=== PATIENT | female | born 1970 | race Caucasian/White ===

== ENCOUNTER 2021-02-08 09:15 | Outpatient (RCR) | payer OTHER | END 2021-02-13 | disposition home or self-care (01) | PROVIDERS: ATTEND Physical Therapist | DX: M25.511 Pain in right shoulder (principal) ==

== ENCOUNTER 2021-04-04 08:44 | Outpatient (RCR) | payer OTHER | END 2021-05-17 14:57 | disposition home or self-care (01) | PROVIDERS: ATTEND Physical Therapist | DX: M25.511 Pain in right shoulder (principal) ==

== ENCOUNTER 2022-03-28 12:47 | Day surgery (SDC) | payer OTHER ==
[~2022-03-28] VITALS: Ht 165 cm; Wt 86.0 kg
--- NOTE | 2022-03-28 13:05 | ED Abdominal Pain ---
General Chief Complaint: Abdominal/GI Problems Stated Complaint: ABD PAIN Source of Information: Patient History of Present Illness Date Seen by Provider: March 28, 2022 Time Seen by Provider: 12:57 Initial Comments PT ARRIVES VIA POV FROM HOME C/O RLQ PAIN BEGAN HAVING RIGHT SIDED ABDOMINAL PAIN LAST NIGHT AROUND 1900--MORE IN RIGHT UPPER QUADRANT INITIALLY, NOW HAS MOVED TO RLQ AND HAS PERSISTED AND GOTTEN WORSE THROUGHOUT THE DAY. PAIN IS WORSE WITH WALKING AND BUMPS ON CAR RIDE HERE NO NAUSEA/VOMITING BUT HAS NOT HAD AN APPETITE. ONLY INTAKE IN LAST 36 HOURS WAS A [place] BAR AROUND 0400 ( PT WORKED ALL NIGHT LAST NIGHT) NO FEVER NO URINARY SYMPTOMS PT HAS HAD CHOLECYSTECTOMY AND HYSTERECTOMY/BILATERAL SALPINGO-OOPHORECTOMY PCP: DR. JOSELYN GOLDMAN WITH [facility] Allergies and Home Medications Allergies Coded Allergies: No Known Drug Allergies (Unverified , 03/28/22) Patient Home Medication List Home Medication List Reviewed: Yes Hydrocodone/Acetaminophen (Hydrocodone-Acetamin 7.5-325) 7.5 Mg-325 Mg Tablet, 1 EACH PO Q4H Prescribed by: CLAUDETTE KHAN on 03/28/22 1422 Review of Systems Review of Systems Constitutional: no symptoms reported Respiratory: No Symptoms Reported Cardiovascular: No Symptoms Reported Gastrointestinal: See HPI, Abdominal Pain; Denies Constipated, Denies Diarrhea, Denies Nausea; Poor Appetite; Denies Vomiting Genitourinary: No Symptoms Reported Musculoskeletal: no symptoms reported Skin: no symptoms reported Psychiatric/Neurological: No Symptoms Reported Endocrine: No Symptoms Reported Past Dzammjk-Niobme-Guqlix Hx Patient Social History Tobacco Use?: No Substance use?: No Alcohol Use?: No Past Medical History Surgeries: Yes Gallbladder, Hysterectomy, Oophorectomy Respiratory: No Cardiac: Yes (PFO) Neurological: Yes Headaches /Migraines : 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 oz. 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, no motor/sensory deficits, alert, normal mood/affect, oriented x 3 Skin: normal color, warm/dry; No rash Progress/Results/Core Measures Results/Orders Lab Results Laboratory Tests Test 03/28/22 13:03 Range/Units White Blood Count 12.5 H 4.3-11.0 10^3/uL Red Blood Count 4.54 3.80-5.11 10^6/uL Hemoglobin 14.2 11.5-16.0 g/dL Hematocrit 42 35-52 % Mean Corpuscular Volume 91 80-99 fL Mean Corpuscular Hemoglobin 31 25-34 pg Mean Corpuscular Hemoglobin Concent 34 32-36 g/dL Red Cell Distribution Width 12.6 10.0-14.5 % Platelet Count 243 130-400 10^3/uL Mean Platelet Volume 9.2 9.0-12.2 fL Immature Granulocyte % (Auto) 0 % Neutrophils (%) (Auto) 59 42-75 % Lymphocytes (%) (Auto) 30 12-44 % Monocytes (%) (Auto) 9 0-12 % Eosinophils (%) (Auto) 1 0-10 % Basophils (%) (Auto) 0 0-10 % Neutrophils # (Auto) 7.4 1.8-7.8 10^3/uL Lymphocytes # (Auto) 3.8 1.0-4.0 10^3/uL Monocytes # (Auto) 1.1 H 0.0-1.0 10^3/uL Eosinophils # (Auto) 0.2 0.0-0.3 10^3/uL Basophils # (Auto) 0.0 0.0-0.1 10^3/uL Immature Granulocyte # (Auto) 0.1 0.0-0.1 10^3/uL Urine Color YELLOW Urine Clarity CLEAR Urine pH 7.0 5-9 Urine Specific [place] 1.015 L 1.016-1.022 Urine Protein NEGATIVE NEGATIVE Urine Glucose (UA) NEGATIVE NEGATIVE Urine Ketones NEGATIVE NEGATIVE Urine Nitrite NEGATIVE NEGATIVE Urine Bilirubin NEGATIVE NEGATIVE Urine Urobilinogen 0.2 < = 1.0 MG/DL Urine Leukocyte Esterase NEGATIVE NEGATIVE Urine RBC (Auto) 1+ H NEGATIVE Urine RBC 5-10 H /HPF Urine WBC 0-2 /HPF Urine Squamous Epithelial Cells 2-5 /HPF Urine Crystals NONE /LPF Urine Bacteria TRACE /HPF Urine Casts NONE /LPF Urine Mucus NEGATIVE /LPF Urine Culture Indicated NO Sodium Level 143 135-145 MMOL/L Potassium Level 3.7 3.6-5.0 MMOL/L Chloride Level 109 H 98-107 MMOL/L Carbon Dioxide Level 25 21-32 MMOL/L Anion Gap 9 5-14 MMOL/L Blood Urea Nitrogen 15 7-18 MG/DL Creatinine 0.96 0.60-1.30 MG/DL Estimat Glomerular Filtration Rate 72 BUN/Creatinine Ratio 16 Glucose Level 102 70-105 MG/DL Calcium Level 9.3 8.5-10.1 MG/DL Corrected Calcium 9.0 8.5-10.1 MG/DL Total Bilirubin 1.4 H 0.1-1.0 MG/DL Aspartate Amino Transf (AST/SGOT) 20 5-34 U/L Alanine Aminotransferase (ALT/SGPT) 30 0-55 U/L Alkaline Phosphatase 99 40-136 U/L Total Protein 7.3 6.4-8.2 GM/DL Albumin 4.4 3.2-4.5 GM/DL Amylase Level 52 25-125 U/L Lipase 14 8-78 U/L My Orders Orders - TUYET SUBRAMANIAN DO Ed Iv/Invasive Line Start (03/28/22 12:51) Amylase (03/28/22 12:51) Cbc With Automated Diff (03/28/22 12:51) Comprehensive Metabolic Panel (03/28/22 12:51) Lipase (03/28/22 12:51) Ua Culture If Indicated (03/28/22 12:51) Ketorolac Injection (Toradol Injection) (03/28/22 13:30) Ct Abd/Pelv W (Appendicitis) (03/28/22 13:21) Iohexol Injection (Omnipaque 350 Mg/Ml 1 (03/28/22 13:45) Received Contrast (Hold Metformin- Contr (03/28/22 13:45) Ns (Ivpb) (Sodium Chloride 0.9% Ivpb Bag (03/28/22 13:45) Lidocaine/Epi 1% 1:200,00 (Xylocaine/Epi (03/28/22 14:12) Medications Given in ED Vital Signs/I&O 03/28/22 12:50 Temp 36.7 Pulse 122 Resp 18 B/P (MAP) 148/95 (112) Pulse Ox 97 Progress Progress Note : Progress Note GIVEN TORADOL AND IV FLUIDS WITH RELIEF OF PAIN NO DETERIORATION IN PT'S CONDITION DURING ER STAY Diagnostic Imaging Comments CT ABDOMEN/PELVIS--PER DR. GARCIA VIA PHONE AT 1350 FINDINGS: Lower chest: The lung bases are clear. No pericardial or pleural effusion. Peritoneum: No free intraperitoneal air. No loculated fluid collection would indicate abscess. Liver and biliary system: The liver is normal. Cul-de-sac knee. No biliary duct dilatation. Spleen and Pancreas: Spleen is normal. The pancreas enhances normally without mass lesion or peripancreatic inflammatory changes. Adrenals: Normal. tract: The kidneys enhance normally without suspicious mass or obstruction. Urinary bladder is distended without wall thickening. Hysterectomy. No adnexal mass. GI tract: Stomach is decompressed. No bowel obstruction. No pericolonic inflammatory changes. The appendix is enlarged measuring up to 1.1 cm and has surrounding inflammation indicative of acute appendicitis. An obstructing appendicolith is present at the appendiceal orifice. Vasculature and Lymph nodes: Normal caliber aorta. No abdominal or pelvic lymphadenopathy. Musculoskeletal: No concerning osseous lesion. IMPRESSION: 1. Acute appendicitis due to obstructing appendicolith. No abscess formation or roverto perforation. 2. No bowel obstruction. Departure Communication (Admissions) 1355--SPOKE WITH DR. KHAN, WILL BE TAKING PT DIRECTLY TO SURGERY Impression Primary Impression: Appendicitis Disposition: ADMITTED INPATIENT (TO SURGERY) Condition: Improved Admissions Decision to Admit Reason: Admit from ER (General) (TO SURGERY) Decision to Admit/Date: March 28, 2022 Time/Decision to Admit Time: 13:55 Departure-Patient Inst. Referrals: JOSELYN GOLDMAN MD (PCP/Family) Primary Care Physician Scripts Hydrocodone/Acetaminophen (Hydrocodone-Acetamin 7.5-325) 7.5 Mg-325 Mg Tablet 1 EACH PO Q4H, #35 TAB Prov: CLAUDETTE KHAN MD 03/28/22 TUYET SUBRAMANIAN DO March 28, 2022 13:05
[2022-03-28 13:17] LABS: BASOPHILS % (AUTO) 0 % (0-10); EOSINOPHILS # (AUTO) 0.2 10^3/uL (0.0-0.3); EOSINOPHILS % (AUTO) 1 % (0-10); HEMATOCRIT 42 % (35-52); HEMOGLOBIN 14.2 g/dL (11.5-16.0); LYMPHOCYTES # (AUTO) 3.8 10^3/uL (1.0-4.0); LYMPHOCYTES % (AUTO) 30 % (12-44); MEAN CORPUSCULAR HEMOGLOBIN 31 pg (25-34); MEAN CORPUSCULAR HGB CONC 34 g/dL (32-36); MEAN CORPUSCULAR VOLUME 91 fL (80-99); MEAN PLATELET VOLUME 9.2 fL (9.0-12.2); MONOCYTES # (AUTO) 1.1 10^3/uL (0.0-1.0); MONOCYTES % (AUTO) 9 % (0-12); NEUTROPHILS # (AUTO) 7.4 10^3/uL (1.8-7.8); NEUTROPHILS % (AUTO) 59 % (42-75); PLATELET COUNT 243 10^3/uL (130-400); WHITE BLOOD COUNT 12.5 10^3/uL (4.3-11.0)
[2022-03-28 13:19] LABS: BILIRUBIN,URINE NEGATIVE (NEGATIVE); CLARITY,URINE CLEAR; COLOR,URINE YELLOW; GLUCOSE, URINE (UA) NEGATIVE (NEGATIVE); KETONES,URINE NEGATIVE (NEGATIVE); LEUKOCYTE ESTERASE ,URINE NEGATIVE (NEGATIVE); NITRITE,URINE NEGATIVE (NEGATIVE); PROTEIN,URINE NEGATIVE (NEGATIVE)
[2022-03-28 13:26] LABS: BACTERIA,URINE TRACE /HPF; WBC,URINE 0-2 /HPF
[2022-03-28] MEDS ORDERED: KETOROLAC 30 MG/ML VIAL IVP ONE (13:30)
[2022-03-28 13:31] LABS: ALBUMIN 4.4 GM/DL (3.2-4.5); POTASSIUM 3.7 MMOL/L (3.6-5.0)
[2022-03-28 13:33] LABS: CALCIUM 9.3 MG/DL (8.5-10.1)
[2022-03-28 13:34] LABS: TOTAL PROTEIN 7.3 GM/DL (6.4-8.2)
[2022-03-28 13:36] LABS: BILIRUBIN,TOTAL 1.4 MG/DL (0.1-1.0)
[2022-03-28 13:37] LABS: CREATININE SERUM 0.96 MG/DL (0.60-1.30)
[2022-03-28] MEDS ORDERED: NS 100 ML (IVPB) BAG IV ONE (13:45)
[2022-03-28] MEDS ORDERED: HOLD METFORMIN - RECEIVED CONTRAST 20 ML VIAL IV SCH (13:45)
[2022-03-28] MEDS ORDERED: IOHEXOL 350 MG/ML 100 ML (OMNIPAQUE 350) VIAL IV ONE (13:45)
[2022-03-28] MEDS ORDERED: LIDOCAINE PF 2% 5 ML (XYLOCAINE) VIAL ONE (14:08)
[2022-03-28] MEDS ORDERED: MIDAZOLAM 2 MG/2 ML (VERSED) VIAL ONE (14:08)
[2022-03-28] MEDS ORDERED: fentaNYL INJ 100 MCG/2 ML AMP ONE (14:08)
[2022-03-28] MEDS ORDERED: proPOfol 200 MG/20 ML (DIPRIVAN) VIAL IV ONE (14:08)
[2022-03-28] MEDS ORDERED: SEVOFLURANE (ULTANE) 15 ML INHAL SOLN ONE ×2 (14:11→15:38)
--- NOTE | 2022-03-28 14:11 | Diagnostic Imaging Report ---
'CT ABD/PELV W (APPENDICITIS) TECHNIQUE: Multiple contiguous axial images were obtained through the abdomen and pelvis after administration of intravenous contrast. All CT scans use one or more of the following dose optimizing techniques: automated exposure control, MA and/or KvP adjustment based on patient size and exam type or iterative reconstruction. INDICATION: Right lower quadrant pain. COMPARISON: None available. FINDINGS: Lower chest: The lung bases are clear. No pericardial or pleural effusion. Peritoneum: No free intraperitoneal air. No loculated fluid collection would indicate abscess. Liver and biliary system: The liver is normal. Cul-de-sac knee. No biliary duct dilatation. Spleen and Pancreas: Spleen is normal. The pancreas enhances normally without mass lesion or peripancreatic inflammatory changes. Adrenals: Normal. tract: The kidneys enhance normally without suspicious mass or obstruction. Urinary bladder is distended without wall thickening. Hysterectomy. No adnexal mass. GI tract: Stomach is decompressed. No bowel obstruction. No pericolonic inflammatory changes. The appendix is enlarged measuring up to 1.1 cm and has surrounding inflammation indicative of acute appendicitis. An obstructing appendicolith is present at the appendiceal orifice. Vasculature and Lymph nodes: Normal caliber aorta. No abdominal or pelvic lymphadenopathy. Musculoskeletal: No concerning osseous lesion. IMPRESSION: 1. Acute appendicitis due to obstructing appendicolith. No abscess formation or roverto perforation. 2. No bowel obstruction. Dictated by: Dictated on workstation # [id number]
[2022-03-28] MEDS ORDERED: LIDOCAINE/EPI 1%-1:200,000 (XYLOCAINE) 30 ML VIAL ONE (14:12)
[2022-03-28] MEDS ORDERED: ONDANSETRON 4 MG/2 ML (SDV) Z0FRAN ONE (14:12)
[2022-03-28] MEDS: LACTATED RINGERS 1,000 ML IV PRN ×3 (14:14→15:57)
--- NOTE | 2022-03-28 14:20 | Progress Note-Pre Operative ---
Pre-Operative Progress Note H&P Reviewed The H&P was reviewed, patient examined and no changes noted. Date Seen by Provider: March 28, 2022 Time Seen by Provider: 14:20 Date H&P Reviewed: March 28, 2022 Time H&P Reviewed: 14:20 Pre-Operative Diagnosis: acute appendicitis CLAUDETTE KHAN MD March 28, 2022 14:20
--- NOTE | 2022-03-28 14:21 | Discharge Inst-Surgical ---
D/C Lap Instructions-ERIN New, Converted, or Re-Newed RX: RX on Chart Follow Up Appt in 2 weeks Activity as tolerated No driving for 24 hours No driving while on pain medications Incentive Spirometry use every 2 hours while awake Regular Diet Symptoms to Report: Fever over 101 degree F, Nausea/Vomiting Infection Signs and Symptoms to report: Increased redness, Foul odor of wound, Increased drainage Bathing instructions: May shower Operative Area Clean/Dry; Keep incision clean/dry If any problems/questions: Contact your physician or go to Emergency Room CLAUDETTE KHAN MD March 28, 2022 14:21
[2022-03-28] MEDS ORDERED: HYDR-3817 PO (14:22)
[2022-03-28] MEDS ORDERED: ONDANSETRON 4 MG/2 ML (SDV) Z0FRAN IVP PRN ×2 (14:30→16:00)
[2022-03-28] MEDS ORDERED: ACETAMINOPHEN 325 MG TABLET PO PRN (14:30)
[2022-03-28] MEDS ORDERED: oxyCODONE/APAP 5/325MG (PERCOCET 5) TABLET PO PRN (14:30)
[2022-03-28] MEDS ORDERED: morphine INJ 10 MG/ML 1ML (SYR OR VIAL) IVP PRN ×2 (14:30)
--- NOTE | 2022-03-28 14:43 | HISTORY AND PHYSICAL ---
DATE OF SERVICE: ATTENDING PRIMARY CARE PHYSICIAN: Dr. Chaya Baird. HISTORY OF PRESENT ILLNESS: The patient is a 52-year-old female who presented to [facility] Emergency Department with right-sided abdominal pain that started last night. She states that this had become more localized towards the right lower abdominal quadrant over time and the pain intensity worsened as well. She also reports nausea; however, no vomiting. CT scan was performed, which showed an inflamed appendix as well as an appendicolith. No signs of perforation. PAST MEDICAL HISTORY: None. PAST SURGICAL HISTORY: Hysterectomy, laparoscopic cholecystectomy. ALLERGIES: No known drug allergies. MEDICATIONS: None. SOCIAL HISTORY: Negative smoke, negative alcohol. FAMILY HISTORY: Noncontributory. VITAL SIGNS: Temperature 36.7, blood pressure 148/95, pulse 100, respirations 18, pulse ox 97% on room air. REVIEW OF SYSTEMS: Well-nourished female currently in no acute distress. She is not experiencing any shortness of breath or difficulty breathing. No chest pain, palpitations, diaphoresis. Intermittent episodes of nausea, no vomiting. She does not report any diarrhea nor constipation as well as no red blood per rectum nor any dark tarry stools. No fever, chills, no recent inadvertent weight loss. All other review of systems negative. PHYSICAL EXAMINATION: CHEST: Clear. Good breath sounds bilaterally. HEART: Regular, no murmurs. EXTREMITIES: No lower extremity edema, negative Homans sign. HEENT: No scleral icterus. NECK: No cervical lymphadenopathy. ABDOMEN: Soft, nondistended. There is pain in the right lower abdominal quadrant at McBurney's point with voluntary guarding, no rebound. SKIN: Warm, dry. LABORATORY DATA: WBC 12.5, hemoglobin 14.2, hematocrit 42, platelets 243, BUN 15, creatinine 0.96. ASSESSMENT AND PLAN: A 52-year-old female with acute appendicitis and appendicolith. The risks and benefits of surgery were explained to the patient. She is in full understanding of this and would like to proceed with laparoscopic appendectomy, which we will schedule. Job ID: [id number] DocumentID: [id number] Dictated Date: 03/28/2022 14:19:56 Digital Media Planner Date: 03/28/2022 14:42:32 Dictated By: CLAUDETTE KHAN MD [facility]
[2022-03-28] MEDS ORDERED: ceFAZolin INJECTION 1,000 MG VIAL IV ONE (15:15)
[2022-03-28] MEDS ORDERED: ceFAZolin INJECTION 2,000 MG ONE (15:15)
[2022-03-28] MEDS ORDERED: ROCURONIUM 50 MG/5 ML (ZEMURON) VIAL IV ONE (15:40)
[2022-03-28 15:45] VITALS: BP 113/66
--- NOTE | 2022-03-28 15:47 | Progress Note-Post Operative ---
Post-Operative Progess Note Surgeon (s)/Metal Mine Inspector (s) Surgeon CLAUDETTE KHAN MD Metal Mine Inspector: none Pre-Operative Diagnosis acute appendicitis Post-Operative Diagnosis same Procedure & Operative Findings Date of Procedure 03/28/22 Procedure Performed/Findings laparoscopic appendectomy. Anesthesia Type get Estimated Blood Loss Estimated blood loss (mL): minimal Specimens/Packing Specimens Removed appendix CLAUDETTE KHAN MD March 28, 2022 15:47
[2022-03-28 15:51] VITALS: BP 110/68
[2022-03-28 16:00] VITALS: BP 134/91
[2022-03-28] MEDS ORDERED: MEPERIDINE (DEMEROL) INJ 50 MG/ML IVP ONE (16:00)
[2022-03-28] MEDS ORDERED: morphine INJ 10 MG/ML 1ML (SYR OR VIAL) IVP ONE (16:00)
[2022-03-28] MEDS ORDERED: fentaNYL INJ 100 MCG/2 ML AMP IVP ONE (16:00)
[2022-03-28 16:10] VITALS: BP 135/90
[2022-03-28 16:20] VITALS: BP 124/69
[2022-03-28 16:26] VITALS: BP 120/77
--- NOTE | 2022-03-29 01:00 | OPERATIVE REPORT ---
DATE OF SERVICE: 03/28/2022 ATTENDING PRIMARY CARE PHYSICIAN: Dr. Chaya Baird. PREOPERATIVE DIAGNOSIS: Acute appendicitis. POSTOPERATIVE DIAGNOSIS: Acute appendicitis, no perforation. PROCEDURE: Laparoscopic appendectomy. SURGEON: Claudette Khan MD. ANESTHESIA: General endotracheal. ESTIMATED BLOOD LOSS: Minimal. FINDINGS: Inflamed appendix, no perforation. DISPOSITION: The patient tolerated the procedure well. INDICATIONS: The patient is a 52-year-old female, who presented to [facility] Emergency Department with a right-sided abdominal pain, which started last night around 7:00 p.m. She states that overnight, the pain increased in severity and also became more localized towards the right lower abdominal quadrant. She also reported some mild nausea; however, no vomiting. A CT scan was performed, which showed an inflamed appendix as well as an appendicolith. DESCRIPTION OF PROCEDURE: The patient was brought to the operating room, laid supine on the table. After adequate IV pain and sedative medications and general endotracheal intubation, the abdomen was prepped and draped in standard surgical fashion. A 0.5% Marcaine with epinephrine was used to anesthetize overlying skin in the left upper abdominal quadrant and a transverse skin incision made using a 15 blade. An 0 silk suture was applied to the medial aspect incision for retraction and Veress needle inserted with a low opening pressure of 0 mmHg and the abdomen was then insufflated to 15 mmHg pressure. The Veress needle removed and a 5 mm XL trocar placed followed by a 5 mm 45-degree angle laparoscope visualized the peritoneal cavity. The patient was then placed in reverse Trendelenburg position as well as plane right side up, left side down. A 4-quadrant abdominal exploration was performed. The colon, small bowel appeared normal. There was an inflamed appendix with increased turgor pressure, no perforation. Under direct visualization, we then proceed to place a supraumbilical 10 mm port after the skin and peritoneal lining were anesthetized using 0.5% Marcaine with epinephrine and a transverse skin incision made using a 15 blade and in a similar manner, a suprapubic 5 mm port was placed. The appendix was then retracted towards the anterior abdominal wall. The mesoappendix was then dissected out using electrocautery on the hook instrument with visualization of good hemostasis. The appendix was then stapled and transected at the cecal base using a MONICA 45 mm stapler with a 2.5 mm thickness load. Good hemostasis was observed. The appendix was then removed through the 10 mm port site using an EndoCatch bag. The 10 mm port site fascia and peritoneum were then closed under direct visualization using a Josh-Ronna device and 0 Vicryl suture. The abdomen was then desufflated and the remaining ports removed. All skin incisions were closed using 4-0 Monocryl running subcuticular sutures. Wounds were then cleaned and covered with Dermabond. The patient tolerated the procedure well. We will start IV normal pain medication as well as a clear liquid diet. When she is tolerating clears, has good pain control with oral pain medications, is ambulating well, we will discharge her home where she will be instructed to do no heavy lifting or exertion for the next two weeks. Job ID: [id number] DocumentID: [id number] Dictated Date: 03/28/2022 15:51:58 Linux Systems Engineer Date: 03/29/2022 01:00:00 Dictated By: CLAUDETTE KHAN MD
--- NOTE | 2022-03-29 12:57 | Anesthesia-General Post-Op ---
General Patient Condition Mental Status/LOC: Same as Preop Cardiovascular: Satisfactory Nausea/Vomiting: Absent Respiratory: Satisfactory Pain: Controlled Complications: Absent Post Op Complications Complications None Follow Up Care/Instructions Patient Instructions None needed. Anesthesia/Patient Condition Patient Condition Patient is already discharged to home but she was doing well, no complaints, stable vital signs, no apparent adverse anesthesia problems prior to her discharge to home per nursing staff. TOMI YBARRA DO March 29, 2022 12:57
== END 2022-03-28 17:50 | disposition home or self-care (01) ==
LOC: EDUNIT# 12:47 → ER 12:49 → SDC 14:25
PROVIDERS: ATTEND Surgery
DX: K35.80 Unspecified acute appendicitis (principal); K38.1 Appendicular concretions; E66.9 Obesity, unspecified; Z68.32 Body mass index [BMI] 32.0-32.9, adult; Z79.82 Long term (current) use of aspirin
CPT/HCPCS: 36415; 74177; 80053; 81000; 82150; 83690; 85025; 96374